=== PATIENT | female | born 1965 | race Caucasian/White ===

== ENCOUNTER → 2016-09-12 | Outpatient (CLI) | payer OTHER ==
--- NOTE | 2016-09-12 12:43 | DIAGNOSTIC IMAGING REPORT ---
CHEST 2 VIEWS ROUTINE HISTORY: 50 years-old Female acute cough x3 weeks COMPARISON: Chest radiograph 06/20/2014 TECHNIQUE: PA and lateral views of the chest FINDINGS: Cardiomediastinal and hilar silhouettes are within normal limits. No pneumothorax, pleural effusion or focal airspace consolidation. There is no overt pulmonary edema. Bones are grossly intact. Upper abdominal structures are within normal limits. IMPRESSION: No acute cardiopulmonary process. The above report was generated using voice recognition software. It may contain grammatical, syntax or spelling errors. Electronically signed by: Kt Culver M.D. 09/12/2016 12:42 PM Dictated Date/Time: 09/12/2016 12:41 PM
== END | disposition home or self-care (01) ==
LOC: C.RADBC 11:59
PROVIDERS: ATTEND Internal Medicine
DX: R05 Cough (principal)

== ENCOUNTER → 2017-05-29 | Outpatient (CLI) | payer OTHER ==
[~2017-05-29] MED LIST: ACET-1256 PO; CEPH500C PO; SACC250C3 PO; SULF800T23 PO
[2017-05-29 14:26] LABS: BASO % 0.2 %; BASO ABS # 0.01 K/uL (0-0.2); EOS % 1.3 %; EOS ABS # 0.07 K/uL (0-0.5); HEMATOCRIT 42.7 % (37-47); HEMOGLOBIN 14.4 g/dL (12.0-16.0); IG# 0.01 K/uL (0.00-0.02); LYMPH % 37.5 %; MEAN CELL VOLUME 96.8 fL (80-100); MEAN CORPUSCULAR HEMOGLOBIN 32.7 pg (25-34); MEAN CORPUSCULAR HGB CONC 33.7 g/dl (32-36); MONO % 6.6 %; MONO ABS # 0.35 K/uL (0.11-0.59); NEUT % 54.2 %; PLATELET COUNT 234 K/uL (130-400); RED CELL DISTRIBUTION WIDTH CV 12.8 % (11.5-14.5); RED CELL DISTRIBUTION WIDTH SD 44.9 fL (36.4-46.3); WHITE BLOOD COUNT 5.34 K/uL (4.8-10.8)
[2017-05-29 16:39] LABS: ALBUMIN 3.8 gm/dl (3.4-5.0); ALT/SGPT 25 U/L (12-78); AST/SGOT 17 U/L (15-37); BLOOD UREA NITROGEN 8 mg/dl (7-18); CALCIUM 9.5 mg/dl (8.5-10.1); CARBON DIOXIDE 30 mmol/L (21-32); CREATININE 1.01 mg/dl (0.60-1.20); GLUCOSE 69 mg/dl (70-99); SODIUM 139 mmol/L (136-145); TOTAL PROTEIN 8.2 gm/dl (6.4-8.2)
[2017-05-29 16:50] LABS: ALKALINE PHOSPHATASE 105 U/L (45-117)
== END | disposition home or self-care (01) ==
LOC: C.LABBC 11:09
PROVIDERS: ATTEND Family Medicine Adult Medicine
DX: R42 Dizziness and giddiness (principal)

== ENCOUNTER 2017-06-04 21:00 | Emergency (ER) | payer OTHER ==
[~2017-06-04] VITALS: Ht 170.2 cm; Wt 73.3 kg
[2017-06-04 21:32] VITALS: TEMP 36.6; Ht 170.2 cm; Wt 73.3 kg
[2017-06-04] MEDS ORDERED: ACET-1256 PO (22:00)
[2017-06-04] MEDS ORDERED: SULFAMETHOXAZOLE/TRIMETHOPRIM DS 800/160MG TAB PO STA (22:09)
--- NOTE | 2017-06-04 22:11 | EMERGENCY ROOM VISIT NOTE ---
History Report prepared by Krys: Alvin Hough Under the Supervision of: Dr. Vik Briones M.D. First contact with patient: 21:57 Chief Complaint: FINGER PAIN Stated Complaint: R POINTER FINGER SWOLLEN History of Present Illness The patient is a 51 year old female who presents to the Emergency Room with complaints of worsening swelling to her right index finger beginning three days ago. The patient states she has a history of these symptoms before, but they went away. She reports it started with a blister and increased to her entire finger. The patient notes she did not see her PCP because it was not very severe. She states she took a pill of cephalexin this afternoon because it was left over from her previous episode. The patient reports she did not pop knowingly pop the blister. 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 The patient states it may have popped under the gloves. She reports she cannot move her finger without increasing her symptoms. The patient notes she has a history of smoking. She denies fevers, chills, cough, congestion, nausea, vomiting, diarrhea, taking medication daily, cutting her finger, and a history of diabetes. Source of History: patient Onset: three days ago Position: finger(s) (right index) Quality: other (swelling) Timing: worsening Modifying Factors (Worsening): movement Associated Symptoms: No fevers, No chills, No cough, No nausea, No vomiting , No diarrhea Note: Denies: congestion Review of Systems See HPI for pertinent positives and negatives. A total of ten systems were reviewed and were otherwise negative. Past Medical & Surgical Medical Problems: (1) Cellulitis (2) Endometriosis Nos (3) Fungal infection of foot (4) Psoriasis Surgical Problems: (1) History of hysterectomy Family History Patient reports no known family medical history. Social History Smoking Status: Current Every Day Smoker Alcohol Use: none Drug Use: none Marital Status: in relationship Housing Status: lives with significant other Occupation Status: employed Current/Historical Medications Scheduled Cephalexin Monohydrate (Keflex), 500 MG PO QID Saccharomyces Boulardii (Florastor), 1 CAP PO BID Sulfa/Trimethoprim (Bactrim Ds 800MG/160MG), 2 TAB PO BID Scheduled PRN Acetaminophen (Tylenol), 1,000 MG PO Q6H PRN for Pain or Fever Allergies Coded Allergies: Peanut (Verified Allergy, Severe, SWELLING AND RESP SYMPTOMS TO PEANUTBUTTER, 09/05/14) Peanut-containing Drug Products (Verified Allergy, Severe, SWELLING AND RESP SYMPTOMS W/ PEANUTBUTTER, 09/05/14) Aspirin (Verified Allergy, Unknown, 09/05/14) Latex1 -Allergic Contact Dermititis (Verified Allergy, Unknown, 09/05/14) NSAIDs (Verified Allergy, Unknown, ., 09/05/14) Physical Exam Vital Signs Date Time Temp Pulse Resp B/P (MAP) Pulse Ox O2 Delivery O2 Flow Rate FiO2 06/04/17 23:45 80 18 147/92 99 06/04/17 23:05 80 18 147/92 99 Room Air 06/04/17 21:32 36.6 87 18 165/89 99 Room Air Physical Exam GENERAL: Awake, alert, well-appearing, in no distress HENT: Normocephalic, atraumatic. Oropharynx unremarkable. EYES: Normal conjunctiva. Sclera non-icteric. NECK: Supple. No nuchal rigidity. FROM. No JVD. RESPIRATORY: Clear to auscultation. CARDIAC: Regular rate, normal rhythm. Extremities warm and well perfused. Pulses equal. ABDOMEN: Soft, non-distended. No tenderness to palpation. No rebound or guarding. No masses. RECTAL: Deferred. MUSCULOSKELETAL: Chest examination reveals no tenderness. The back is symmetrical on inspection without obvious abnormality. There is no CVA tenderness to palpation. No joint edema. Right finger has mild pain with ROM. LOWER EXTREMITIES: Calves are equal size bilaterally and non-tender. No edema. No discoloration. NEURO: Normal sensorium. No sensory or motor deficits noted. SKIN: No rash or jaundice noted. Right index finger has mild erythema, edema, and warmth. 0.5cm area of induration on dorsum of proximal phalanx. Medical Decision & Procedures ER Provider Diagnostic Interpretation: X-ray: Per my interpretation, radiologist review. RIGHT HAND 3 VIEWS HISTORY: 2nd finger pain, swelling, redness COMPARISON: None. FINDINGS: There is no fracture or dislocation. Mild soft tissue swelling within the index finger. No underlying erosions. No radiopaque foreign bodies. IMPRESSION: Mild soft tissue swelling within the index finger. No underlying bony abnormality. Electronically signed by: Dick Corona M.D. 06/04/2017 10:47 PM Dictated Date/Time: 06/04/2017 10:46 PM Medications Administered Medications (Trade) Dose Ordered Sig/Ramandeep Route Start Time Stop Time Status Last Admin Dose Admin Dexamethasone Sodium Phosphate (Dexamethasone Inj Pf) 10 mg NOW ONCE PO 06/04/17 22:15 06/04/17 22:16 DC 06/04/17 22:16 10 MG Trimethoprim/ Sulfamethoxazole (Septra Ds 800/ 160MG Tab) 2 tab NOW STAT PO 06/04/17 22:09 06/04/17 22:12 DC 06/04/17 22:16 2 TAB Ibuprofen (Motrin Tab) 800 mg NOW STAT PO 06/04/17 23:34 06/04/17 23:36 DC 06/04/17 23:45 800 MG Trimethoprim/ Sulfamethoxazole (Sulfameth/ Trimeth Ds 800/ 160MG Home Pack) 2 homepack UD STAT PO 06/04/17 23:34 06/04/17 23:36 DC 06/04/17 23:45 2 HOMEPACK Cephalexin Monohydrate (Keflex 500MG Home Pack) 1 homepack NOW STAT PO 06/04/17 23:34 06/04/17 23:36 DC 06/04/17 23:45 1 HOMEPACK Procedure Incision & Drainage Indication: Abscess. Location: right index finger Verbal consent was obtained after the risks and benefits were explained, including but not limited to bleeding, scarring, infection, pain, and bone/joint /nerve damage. At this time, the risks of the procedure are less than the risks of NOT performing the procedure. A time out was taken and the correct patient and site identified. The skin was prepped with chloraprep and a sterile field set. The abscess cavity was entered with a number 11 blade and scant purulent material expressed. Debridement was not performed. Detailed wound care instructions and signs and symptoms of worsening infection reviewed with the patient. No complications and the patient tolerated the procedure well. ED Course 2200: The patient was evaluated in room C04. A complete history and physical exam was performed. 8: I reevaluated the patient. I also performed an I&D procedure. Please refer to the procedure note for more information. Discussed results and discharge instructions: she verbalized understanding and agreement. The patient is ready for discharge. Medical Decision I reviewed the patient's past medical history, medications, and the nursing notes as described above. Differential diagnosis: Etiologies such as cellulitis, abscess, MRSA infection, DVT, necrotizing fasciitis, dermatitis, drug eruption, as well as others were entertained. The patient is a 51 y/o woman who presents to the emergency department with right index finger redness, swelling, and pain per HPI. The patient denies f/c, n/v, or systemic symptoms otherwise. On arrival the patient is well-appearing in NAD, AFVSS. Right index finger with mild erythema, warmth and ttp. Mild pain with ROM, distal PMS intact. Compartment is soft. Given intact ROM unlikely to be tenosynovitis. Xray unremarkable. 0.5 cm of induration on dorsum of proximal phalanx. US at bedside demonstrate small fluid collection. I&D performed per procedure not without local anesthetic given single quick incision only required to release fluid. Edema and pain improved subsequently. Patient took a Keflex at home. Bactrim given in ED. Plan for Bactrim/Keflex and pcp f/u. Findings and plan for follow-up reviewed with patient. Patient agreeable and d/c 'd per discharge instructions. Medication Reconcilliation Current Medication List: was personally reviewed by me Blood Pressure Screening Patient's blood pressure: Elevated blood pressure Blood pressure disposition: Elevated BP felt to be situational Impression Primary Impression: Cellulitis of right index finger Scribe Attestation The scribe's documentation has been prepared under my direction and personally reviewed by me in its entirety. I confirm that the note above accurately reflects all work, treatment, procedures, and medical decision making performed by me. Departure Information Dispostion Home / Self-Care Prescriptions Saccharomyces Boulardii (Florastor) 250 Mg Cap 1 CAP PO BID for 10 Days, #20 CAP Prov: Vik Briones M.D. 06/04/17 Sulfa/Trimethoprim (Bactrim Ds 800MG/160MG) Tab 2 TAB PO BID for 7 Days, #28 TAB Prov: Vik Briones M.D. 06/04/17 Cephalexin Monohydrate (Keflex) 500 Mg Cap 500 MG PO QID for 7 Days, #28 CAP Prov: Vik Briones M.D. 06/04/17 Referrals Delozier, Geovanna L., M.D. (PCP) Forms HOME CARE DOCUMENTATION FORM, IMPORTANT VISIT INFORMATION, WORK / SCHOOL INSTRUCTIONS Patient Instructions ED Infec Skin Cellulitis, [facility] Additional Instructions Please follow up with your primary care physician in the next 1-3 days for re- evaluation. You were found to have a skin infection of your finger. Otherwise, your exam, xray, and bedside ultrasound did not show signs of an emergent condition at this time. Acetaminophen or ibuprofen for pain and fevers as needed. Antibiotics as directed. Florastor, probiotic, to help prevent antibiotic associated diarrhea. Sitz bath 2 times daily. Drink plenty of fluids to ensure hydration. Return to the emergency department for worsening symptoms as described in the accompanying instructions.
[2017-06-04] MEDS ORDERED: DEXAMETHASONE **PF** INJ 10 MG/ML VIAL PO ONE (22:15)
--- NOTE | 2017-06-04 22:49 | DIAGNOSTIC IMAGING REPORT ---
RIGHT HAND 3 VIEWS HISTORY: 2nd finger pain, swelling, redness COMPARISON: None. FINDINGS: There is no fracture or dislocation. Mild soft tissue swelling within the index finger. No underlying erosions. No radiopaque foreign bodies. IMPRESSION: Mild soft tissue swelling within the index finger. No underlying bony abnormality. Electronically signed by: Dick Corona M.D. 06/04/2017 10:47 PM Dictated Date/Time: 06/04/2017 10:46 PM
[2017-06-04] MEDS ORDERED: IBUPROFEN 800 MG TAB PO STA (23:34)
[2017-06-04] MEDS ORDERED: SEPTRA DS HOME PACK 1 EA VIAL PO STA (23:34)
[2017-06-04] MEDS ORDERED: CEPHALEXIN 500MG HOME PACK 1 EA BTL PO STA (23:34)
[2017-06-04] MEDS ORDERED: CEPH500C PO (23:37)
[2017-06-04] MEDS ORDERED: SULF800T23 PO (23:37)
[2017-06-04] MEDS ORDERED: SACC250C3 PO (23:39)
[2017-06-04 23:45] VITALS: BP 147/92; PULSE 80; O2SAT 99
== END 2017-06-04 23:46 | disposition home or self-care (01) ==
LOC: C.EDB 21:02 → C.EDC 23:46
DX: L03.011 Cellulitis of right finger (principal); F17.200 Nicotine dependence, unspecified, uncomplicated; Z91.010 Allergy to peanuts; Z88.8 Allergy status to other drugs, medicaments and biological substances; Z91.040 Latex allergy status; Z88.6 Allergy status to analgesic agent